=== PATIENT | female | born 1980 | race Caucasian/White ===

== ENCOUNTER 2022-07-24 08:45 | Day surgery (SDC) | payer MEDICAID, OTHER ==
[~2022-07-24] VITALS: Ht 162.6 cm; Wt 65.9 kg
[~2022-07-24 08:45] MED LIST: SODIUM CHLORIDE 0.9% 1,000 ML ONE
[2022-07-24] MEDS ORDERED: LIDOCAINE/PF 2% 5 ML SYRINGE IVP ONE (08:46)
[2022-07-24] MEDS ORDERED: PROPOFOL 1% 20 ML VIAL IVP ONE (08:46)
[2022-07-24] MEDS ORDERED: SODIUM CHLORIDE 0.9% 1,000 ML IV ONE (09:00)
[2022-07-24] MEDS ORDERED: FAMO20TA8 PO (09:11)
[2022-07-24 09:43] LABS: COVID AG,FIA SOURCE NASAL SWAB
[2022-07-24] MEDS ORDERED: OXYGEN THERAPY IH SCH (20:00)
== END 2022-07-24 12:20 | disposition home or self-care (01) ==
LOC: SURGERY 08:45
PROVIDERS: ATTEND Specialist
DX: K21.9 Gastro-esophageal reflux disease without esophagitis (principal); Z98.890 Other specified postprocedural states; Z79.899 Other long term (current) drug therapy; Z20.822 Contact with and (suspected) exposure to COVID-19
CPT/HCPCS: 43239; 87426; 84703; C1769; J2704; J3490; J7030; C9803